=== PATIENT | female | born 1965 | race Caucasian/White ===

== ENCOUNTER → 2020-01-08 | Outpatient (CLI) | payer OTHER ==
--- NOTE | 2020-01-08 16:02 | KCIC ---
FINGER(S) RIGHT DATE: 01/08/2020 12:00 AM INDICATION: Fourth digit swelling COMPARISON: None. FINDINGS: Bones: There is no evidence of acute fracture or dislocation. No osseous erosions. Joints: Mild degenerative changes of the DIP joint. Miscellaneous: Soft tissue swelling along the radial aspect of the PIP joint. IMPRESSION: No acute osseous abnormality Electronically signed by: Raleigh Schmidt MD (01/08/2020 3:59 PM) [id number]
== END | disposition home or self-care (01) ==
LOC: KCIC 13:02
PROVIDERS: ATTEND Family Medicine
DX: M19.041 Primary osteoarthritis, right hand (principal)
CPT/HCPCS: 73140